=== PATIENT | male | born 1950 | race Caucasian/White ===

== ENCOUNTER → 2018-09-17 | Outpatient (CLI) | payer MEDICARE, OTHER ==
[~2018-09-17] MED LIST: ASPI81TA94 PO; PANT40TA65 PO; PRAV10TA46 PO
== END ==
LOC: LAB 15:00
PROVIDERS: ATTEND Orthopaedic Surgery Hand Surgery
DX: S61.411A Laceration without foreign body of right hand, initial encounter (principal); W29.3XXA Contact with powered garden and outdoor hand tools and machinery, initial encounter
CPT/HCPCS: 87070; 87073; 87205